=== PATIENT | male | born 1965 | race Two or more races ===

== ENCOUNTER 2021-12-25 10:41 | Outpatient (REF) | payer OTHER, SELFPAY ==
--- NOTE | ~2021-12-25 | XR_ITS ---
EXAMINATION: XR SACROILIAC JOINTS CLINICAL INFORMATION: Dorsalgia COMPARISON: None TECHNIQUE: 3 views of the sacroiliac joints FINDINGS: SI joints are congruent and intact. There is minimal subchondral sclerosis along the iliac side of the joints. No asymmetric joint space widening, erosions, or osteophyte formation. No ankylosis. Disc degenerative changes and facet arthrosis in the visualized lower lumbar spine. Small metallic foreign bodies project in the soft tissues overlying the lower left pelvis. XR/XR sacroiliac joint min 3V IMPRESSION: 1. No fracture. 2. Minimal bilateral SI joint degenerative change. No specific radiographic findings of sacroiliitis. 3. Disc degenerative change and facet arthrosis in the lower lumbar spine.
[2021-12-25 13:42] LABS: MANUAL DIFF FLAG NO
[2021-12-25 13:45] LABS: Basophils Percent Auto 0.2 % (0-2); Eosinophils Percent Auto 0.1 % (0-4); Hematocrit 47.3 % (42.0-52.0); Hemoglobin 15.3 g/dl (14.0-18.0); Imm Gran Abs Auto 0.04 X10*3/uL (0.00-0.03); Imm Gran Pct Auto 0.4 % (0.0-0.4); Lymphocytes Absolute Auto 0.8 X10*3/uL (1.2-4.9); Lymphocytes Percent Auto 7.9 % (20-40); Mean Corpuscular HGB Conc 32.3 g/dl (31.0-36.0); Mean Corpuscular Volume 83.6 fL (80.0-98.0); Monocytes Absolute Auto 0.4 X10*3/uL (0.1-1.2); Monocytes Percent Auto 4.2 % (2-11); Neutrophils Percent Auto 87.2 % (45-73); Platelet Count 213 X10*3/uL (160-400); Red Blood Count 5.66 X10*6/uL (4.60-5.80); Red Cell Distribution Width 14.6 % (11.0-16.0); White Blood Count 10.4 X10*3/uL (4.8-10.8)
[2021-12-25 14:03] LABS: Alanine Aminotransferase 25 U/L (0-40); Albumin Level 4.1 g/dL (3.5-5.0); Alkaline Phosphatase 40 U/L (39-117); Anion Gap 15 (12-20); Aspartate Amino Transferase 15 U/L (5-37); Bilirubin Total 0.7 mg/dL (0.0-1.0); Blood Urea Nitrogen 14 mg/dL (9-16); C Reactive Protein 0.27 mg/dL (< or = 0.50); Carbon Dioxide 22 mmol/L (22-29); Chloride 105 mmol/L (96-108); Estimated Glomerular Filt Rate > 60; Glucose Random 191 mg/dL (60-115); Potassium 4.3 mmol/L (3.3-5.1); Rheumatoid Factor < 15.0 IU/mL (<15.0); Sodium 138 mmol/L (135-145); Total Protein 6.4 g/dL (6.5-8.0)
[2021-12-25 14:43] LABS: Erythrocyte Sedimentation Rate 2 MM/HR (0-15)
[2021-12-28 10:08] LABS: Anti Nuclear Antibody Screen NEGATIVE (NEGATIVE)
[2021-12-30 01:01] LABS: HLA B27 Negative (Negative)
== END 2021-12-25 10:42 | disposition home or self-care (01) ==
LOC: HO.10HDL 10:41
PROVIDERS: Visit Provider Internal Medicine Rheumatology
DX: M19.041 Primary osteoarthritis, right hand (principal); M19.042 Primary osteoarthritis, left hand; M54.9 Dorsalgia, unspecified; M79.7 Fibromyalgia; E11.9 Type 2 diabetes mellitus without complications
CPT/HCPCS: 36415; 72202; 80053; 82550; 85025; 85652; 86038; 86039; 86140; 86431; 86812; 99212

== ENCOUNTER → 2022-02-14 08:02 | Outpatient (BNVA) | payer OTHER, SELFPAY | PROVIDERS: PCP Internal Medicine; Visit Provider Internal Medicine Rheumatology | DX: M47.816 Spondylosis without myelopathy or radiculopathy, lumbar region (principal); M19.041 Primary osteoarthritis, right hand; M19.042 Primary osteoarthritis, left hand; M79.7 Fibromyalgia | CPT/HCPCS: 99212 ==

== ENCOUNTER → 2022-04-25 08:43 | Outpatient (BNVA) | payer OTHER, SELFPAY | PROVIDERS: PCP Internal Medicine; Visit Provider Internal Medicine Rheumatology | DX: M79.7 Fibromyalgia (principal); M47.816 Spondylosis without myelopathy or radiculopathy, lumbar region; M19.041 Primary osteoarthritis, right hand; M19.042 Primary osteoarthritis, left hand | CPT/HCPCS: 99212 ==

== ENCOUNTER 2022-04-25 10:08 | Outpatient (REF) | payer OTHER, SELFPAY ==
[2022-04-25 11:41] LABS: Erythrocyte Sedimentation Rate 3 MM/HR (0-15)
[2022-04-25 12:03] LABS: C Reactive Protein 0.43 mg/dL (< or = 0.50)
== END 2022-04-25 10:09 | disposition home or self-care (01) ==
LOC: HO.10HDL 10:08
PROVIDERS: Visit Provider Internal Medicine Rheumatology
DX: M47.816 Spondylosis without myelopathy or radiculopathy, lumbar region (principal); M79.7 Fibromyalgia; M19.041 Primary osteoarthritis, right hand; M19.042 Primary osteoarthritis, left hand
CPT/HCPCS: 36415; 85652; 86140